=== PATIENT | male | born 2000 | race African-American/Black ===

== ENCOUNTER 2025-06-12 14:36 | Emergency (ER) | payer SELFPAY ==
[~2025-06-12] VITALS: Ht 188 cm; Wt 85.0 kg
[2025-06-12 14:52] VITALS: O2SAT 97
[2025-06-12] MEDS ORDERED: BACLOFEN 20MG TABLET PO ONE (18:00)
[2025-06-12] MEDS ORDERED: BACL20TA MT (18:07)
[2025-06-12] MEDS ORDERED: LIDO700A30 TP (18:07)
[2025-06-12] MEDS ORDERED: KETO10TA2 MT (18:07)
[2025-06-12] MEDS: LIDOCAINE 5% PATCH TOP STA (18:29)
[2025-06-12] MEDS: KETOROLAC 30MG/ML VIAL IM ONE (18:30)
[2025-06-12] MEDS: BACLOFEN 10MG TABLET PO SCH (18:30)
[2025-06-12 18:37] VITALS: BP 126/83; PULSE 77; RESP 16; TEMP 36.7; O2SAT 99
== END 2025-06-12 18:41 | disposition home or self-care (01) ==
LOC: ER 14:36
DX: G89.29 Other chronic pain (principal); M54.50 Low back pain, unspecified; J45.909 Unspecified asthma, uncomplicated
CPT/HCPCS: 99283; 96372; J1885